=== PATIENT | male | born 1955 | race Caucasian/White ===

== ENCOUNTER 2017-08-28 19:54 | Emergency (ER) | payer BC, OTHER ==
[2017-08-28 20:04] VITALS: BP 162/106
[2017-08-28] MEDS ORDERED: predniSONE 10 MG Tab PO ONE (20:22)
[2017-08-28] MEDS ORDERED: diphenhydrAMINE 25 MG Cap PO ONE (20:22)
--- NOTE | 2017-08-28 20:42 | EDM.PDOC ---
ED HPI GENERAL MEDICAL PROBLEM - General Chief Complaint: Bite:Animal, Insect Stated Complaint: BEE STING Time Seen by Provider: 08/28/17 20:11 Source of Information: Reports: Patient History Limitations: Reports: No Limitations - History of Present Illness INITIAL COMMENTS - FREE TEXT/NARRATIVE: 62-year-old male presents for evaluation and treatment of a bee sting. Bee sting occurred about 1-2 hours prior to arrival in the ER. Patient reports that he is picking apples. Reports feeling a sensation to his neck and went to wipe it away with a gloved hand. He reports he then noticed swelling to the area. He did take a 25 mg Benadryl prior to arrival in the ER. He has also been icing the area. He reports associated symptoms of dizziness and malaise. Denies any syncope, shortness of breath, chest pain or any throat swelling. Patient reports that he has been stung by bees in the past. He isn't having anaphylactic type reaction. Onset: Today Location: Reports: Neck Treatments [facility] ROOM OPERATOR: Reports: Other (see below) Other Treatments [facility] ROOM OPERATOR: benadryl - Related Data Allergies Allergy/AdvReac Type Severity Reaction Status Date / Time codeine Allergy Airway Verified 08/28/17 20:01 Tightness Sulfa (Sulfonamide Allergy Hives Verified 08/28/17 20:01 Antibiotics) Past Medical History - Past Health History Medical/Surgical History: Denies Medical/Surgical History Social & Family History - Tobacco Use Smoking Status *Q: Current Every Day Smoker Years of Tobacco use: 40 Packs/Tins Daily: 1 - Recreational Drug Use Recreational Drug Use: No ED ROS GENERAL - Review of Systems Review Of Systems: See Below Constitutional: Reports: Malaise HEENT: Denies: Throat Swelling Respiratory: Denies: Shortness of Breath Cardiovascular: Denies: Chest Pain Skin: Reports: Erythema (anterior neck), Lumps (anterior neck) Neurological: Reports: Dizziness. Denies: Syncope ED EXAM, ANIMAL BITE - Physical Exam Exam: See Below Exam Limited By: No Limitations General Appearance: Alert, WD/WN, No Apparent Distress, Obese Eye Exam: Bilateral Eye: Normal Inspection, PERRL Ears: Normal External Exam Nose: Normal Inspection. No: Nasal Flaring Throat/Mouth: Normal Inspection, Normal Lips, Normal Teeth, Normal Gums, Normal Oropharynx, Normal Voice, No Airway Compromise, Other (no uvula swelling) Neck: Other (erythema to the anterior neck; approximately golf ball sized area of swelling to the midline anterior neck with associated erythema and approximately 4 0.5cm in diameter hives to the anterior neck) Respiratory/Chest: No Respiratory Distress, Lungs Clear, Normal Breath Sounds, No Accessory Muscle Use Cardiovascular: Normal Peripheral Pulses, Regular Rate, Rhythm, No Murmur Neurological: Alert, Oriented Psychiatric: Normal Affect, Normal Mood Skin Exam: Normal Color, Warm/Dry, Rash (erythema to the neck) Course - Vital Signs Last Recorded V/S: Last Vital Signs Temp 36.0 C 08/28/17 20:01 Pulse 66 08/28/17 20:01 Resp 18 08/28/17 20:01 BP 162/106 H 08/28/17 20:01 Pulse Ox 99 08/28/17 21:26 Orthostatic Blood Pressure [ 166/90 Standing] Orthostatic Blood Pressure [ 157/103 Sitting] Orthostatic Blood Pressure [ 147/97 Supine] - Orders/Labs/Meds Meds: Medications Discontinued Medications Generic Name Dose Route Start Last Admin Trade Name Sugar PRN Reason Stop Dose Admin Diphenhydramine HCl 25 mg 08/28/17 20:22 08/28/17 20:37 Benadryl PO 08/28/17 20:23 25 mg ONETIME ONE Administration Prednisone 30 mg 08/28/17 20:22 Prednisone PO 08/28/17 20:23 ONETIME ONE - Re-Assessments/Exams Free Text/Narrative Re-Assessment/Exam: 08/28/17 20:47 Nursing staff informed me the patient believes he has an allergy to prednisone. Will given an additional 25mg PO benadryl and continue to monitor. 08/28/17 21:30 Patient is not orthostatic. He was at this point he is feeling improved. We will discharge him home at this time. Discharge instructions as documented. Departure - Departure Time of Disposition: 21:31 Disposition: Home, Self-Care 01 Condition: Good Clinical Impression: Bee sting, Local reaction to bee sting - Discharge Information Instructions: Bee, Wasp, or Hornet Sting Referrals: Tova Burroughs PA-C [Primary Care Provider] - Forms: ED Department Discharge, ED Return to Work/School Form Additional Instructions: Continue to take Benadryl every 6 hours or you may take another antihistamine such as Claritin, Zyrtec or allergra every 12 horus. You may take [id number] ibuprofen as needed for additional swelling discomfort relief. Continue to ice the area several times as needed. Follow-up with your primary care provider if your symptoms do not improve. Please return to the ER if your Symptoms change or worsen.
== END 2017-08-28 21:44 | disposition home or self-care (01) ==
LOC: JD.ED 19:54
DX: T63.441A Toxic effect of venom of bees, accidental (unintentional), initial encounter (principal); F17.210 Nicotine dependence, cigarettes, uncomplicated; Z88.5 Allergy status to narcotic agent; Z88.2 Allergy status to sulfonamides
CPT/HCPCS: 99283; A9270

== ENCOUNTER 2024-06-13 06:15 | Day surgery (SDC) | payer MEDICARE, OTHER ==
[~2024-06-13 06:15] MED LIST: Sodium Chloride 0.9% 10 ML Syringe FLUSH PRN; Sodium Chloride 0.9% 10 ML Syringe FLUSH SCH
[2024-06-13] MEDS ORDERED: Propofol 200 MG/20 ML SDV ONE (06:21)
[2024-06-13] MEDS ORDERED: Midazolam 1 MG/ML 2 ML SDV ONE (06:21)
[2024-06-13] MEDS ORDERED: fentaNYL 100 MCG/2 ML SDV IVPUSH PRN (06:43)
[2024-06-13] MEDS ORDERED: Ondansetron 4 MG/2 ML SDV IVPUSH PRN (06:43)
[2024-06-13] MEDS ORDERED: HYDROmorphone 0.5 MG/0.5 ML Syringe IVPUSH PRN (06:43)
[2024-06-13] MEDS: Lactated Ringers 1,000 ML IV SCH (06:45)
[2024-06-13] MEDS: Albuterol/Ipratropium 3.0-0.5 MG/3 ML Neb Soln NEB PRN (06:51)
[2024-06-13] MEDS: Bupivacaine 0.25% 10 ML SDV ONE (07:18)
[2024-06-13 08:01] VITALS: BP 120/75; PULSE 50
[2024-06-13] MEDS: Lidocaine 1% 10 ML MDV ONE (08:02)
== END 2024-06-13 08:15 | disposition home or self-care (01) ==
LOC: JD.SDS 06:15
PROVIDERS: ATTEND Orthopaedic Surgery
DX: G56.11 Other lesions of median nerve, right upper limb (principal); E11.42 Type 2 diabetes mellitus with diabetic polyneuropathy; E78.00 Pure hypercholesterolemia, unspecified; J45.909 Unspecified asthma, uncomplicated; Z79.84 Long term (current) use of oral hypoglycemic drugs; Z79.82 Long term (current) use of aspirin; Z79.899 Other long term (current) drug therapy; Z88.5 Allergy status to narcotic agent; Z91.030 Bee allergy status; Z91.013 Allergy to seafood
CPT/HCPCS: 64721; J0665; J2250; J2704; J7120; 01810; J3490; J7620-GY